=== PATIENT | male | born 1965 | race Caucasian/White ===

== ENCOUNTER 2020-02-01 02:09 | Inpatient (IN) | payer BC ==
[2020-02-01] VITALS (10 sets, daily range): BP systolic 142–192; BP diastolic 76–106; Ht 170.2 cm; Wt 149.7 kg
[~2020-02-01] VITALS: Ht 170.2 cm; Wt 149.7 kg
[2020-02-01 03:03] LABS: BASOPHILS 0 % (0-2); EOSINOPHILS 0 % (0-7); HEMATOCRIT 40.7 % (42.0-54.0); HEMOGLOBIN 13.7 g/dL (13.5-17.5); IMMATURE GRANULOCYTES 0.3 % (0-5); LYMPHOCYTES 11.4 % (15-50); MCH 29.7 pg (26.0-34.0); MCHC 33.7 g/dL (31.0-37.0); MCV 88.1 fL (80.0-100.0); MEAN PLATELET VOLUME 12.2 fL (7.4-10.4); MONOCYTES 6.5 % (2-11); NEUTROPHILS 81.8 % (40-80); PLATELET COUNT 134 10x3/uL (130-400); RBC 4.62 10x6/uL (4.20-6.10); RDW 12.9 % (11.5-14.5); WBC 5.9 10x3/uL (4.8-10.8)
[2020-02-01 03:06] LABS: CALC OSMOLALITY 281 mosm/kg (275-300); CALCIUM 7.7 mg/dL (8.5-10.1); CARBON DIOXIDE 26.7 mmol/L (21.0-32.0); CHLORIDE - SERUM 102 mmol/L (98-107); CREATININE - SERUM 1.3 mg/dL (0.6-1.3); GLUCOSE 222 mg/dL (74-106); POTASSIUM - SERUM 3.3 mmol/L (3.5-5.1); SODIUM 137 mmol/L (136-145); UREA NITROGEN 16 mg/dL (7-18); eGFR NON AFRICAN AMERICAN 61 mL/min (90-120)
[2020-02-01 03:17] LABS: BILIRUBIN NEGATIVE (NEGATIVE); KETONE NEGATIVE (NEGATIVE); NITRITE NEGATIVE (NEGATIVE); UROBILINOGEN NORMAL (NORMAL)
[2020-02-01 03:17] LABS: ALBUMIN 3.3 g/dL (3.4-5.0); ALKALINE PHOSPHATASE 60 U/L (30-120); ALT (SGPT) 38 U/L (10-68); BILIRUBIN - TOTAL 0.35 mg/dL (0.2-1.3); C-REACTIVE PROTEIN 10.1 mg/dL (0.0-0.9); PRO BNP 356 pg/mL (0-125); PROTEIN - SERUM 7.4 g/dL (6.4-8.2); TROPONIN-I < 0.017 ng/mL (0.000-0.060)
[2020-02-01 03:19] LABS: WHITE CELLS - URINE 0-5 /hpf (0-5)
[2020-02-01 03:20] LABS: BACTERIA FEW /hpf (NONE SEEN); EPITHELIAL CELLS 0-5 /hpf (0-5); RED CELLS - URINE 0-5 /hpf (0-5)
--- NOTE | 2020-02-01 06:55 | NUR ---
PATIENT TOT HE FLOOR VIA BED. ABLE TO TRANSFER BY SELF. A&O X4. NO DISTRESS NOTED. CALL LIGHT WITHIN REACH AND BED IN LOWEST LOCKED POSITION.
--- NOTE | 2020-02-01 07:22 | NUR ---
RECEIVE SHIFT REPORT. AMBULATING IN ROOM. ALERT AND ORIENTED X4. WILL CONTINUE PLAN OF CARE AND SAFETY PRECAUTIONS. CALL LIGHT IN REACH.
[2020-02-01] MEDS ORDERED: TENORMIN25 MG PO (07:54)
[2020-02-01] MEDS ORDERED: LOTENSIN40 MG PO (07:54)
[2020-02-01] MEDS ORDERED: ZYRTEC10 MG PO (07:55)
[2020-02-01] MEDS ORDERED: ASPIRIN81 MG PO (07:55)
[2020-02-01] MEDS ORDERED: FLOMAX0.4 MG PO (07:55)
--- NOTE | 2020-02-01 09:59 | NUR ---
CHARTED ADMITTING VITALS IN THE COMPUTER LATE AT 0919. CAMILO HEWITT DID VITALS AT 0739 AND BP WAS 146/78 SO NO APRESOLINE WAS GIVEN. WILL CONTINUE MONITORING.
--- NOTE | 2020-02-01 19:21 | NUR ---
PT ALERT AND ORIENTED AT THIS TIME NO NEEDS MADE KNOW SPOKE TO PT FROM DOOR
[2020-02-02 04:00] VITALS: BP 159/79
--- NOTE | 2020-02-02 05:09 | NUR ---
LATE ENTRY FOR 02/01/2020, STOP TIME AZITHROMYCIN @ 3779 ALL INFUSED.
[2020-02-02 08:29] VITALS: BP 136/90
[2020-02-02 09:08] LABS: BASOPHILS 0.1 % (0-2); EOSINOPHILS 1.1 % (0-7); HEMATOCRIT 37.8 % (42.0-54.0); HEMOGLOBIN 12.7 g/dL (13.5-17.5); IMMATURE GRANULOCYTES 1.3 % (0-5); LYMPHOCYTES 7.3 % (15-50); MCH 29.7 pg (26.0-34.0); MCHC 33.6 g/dL (31.0-37.0); MCV 88.3 fL (80.0-100.0); MEAN PLATELET VOLUME 11.8 fL (7.4-10.4); MONOCYTES 4.3 % (2-11); NEUTROPHILS 85.9 % (40-80); PLATELET COUNT 145 10x3/uL (130-400); RBC 4.28 10x6/uL (4.20-6.10); RDW 13.2 % (11.5-14.5); WBC 8.5 10x3/uL (4.8-10.8)
[2020-02-02 09:21] LABS: ALBUMIN 2.6 g/dL (3.4-5.0); ANION GAP 13.2 mmol/L (8-16); BILIRUBIN - TOTAL 0.33 mg/dL (0.2-1.3); CALCIUM 7.5 mg/dL (8.5-10.1); CARBON DIOXIDE 25.2 mmol/L (21.0-32.0); CREATININE - SERUM 1.3 mg/dL (0.6-1.3); POTASSIUM - SERUM 3.4 mmol/L (3.5-5.1); PROTEIN - SERUM 6.6 g/dL (6.4-8.2)
--- NOTE | 2020-02-02 11:42 | NUR ---
PT WITH TACHYPNEA AT 28 B/M. PLACED ON 2 LITERS PRIOR FOR PULSE OX 89% ON RA. NOW AT 93%. RT NOTIFIED AND ASSESSED PT. ABG CHECKED WITH PH 7.47, CO2 28.2, FIO2 91%. CALL PLACED TO FOR UPDATE.
[2020-02-02 11:55] VITALS: BP 141/69
[2020-02-02 15:39] VITALS: BP 177/80
--- NOTE | 2020-02-02 19:53 | NUR ---
RECIEVED UP IN BED WITH EYES OPEN AND TALKING ON TELEPHONE. ALERT AND ORIENTED UP AD LUZ TO B/R. O2@ 4 LITERS PER N/C. TELEMETRY IN PLACE. DENIES ANY NEEDS AT THIS TIME.
[2020-02-02 21:03] VITALS: BP 157/91
--- NOTE | 2020-02-03 05:53 | NUR ---
TEMP 102.5. ACETAMENOPHEN 650MG GIVEN.
--- NOTE | 2020-02-03 06:10 | NUR ---
RAPID RESPONSE, PO2 ON ABG 35.6, CALLED ED FOR EMERGENT INTUBATION. PT TO BE TRANSFERED TO ICU - JANE TILLMAN PAGED AND CALLED BACK, ORDERS FOR ICU PLACEMENT - PROPOFOL TITRATION ORDERS - AND TO RECHECK ABG 30 MIN POST ICU TRANSFER.
[2020-02-03 06:20] VITALS: BP 189/88
[2020-02-03 06:22] LABS: BASOPHILS 0.1 % (0-2); EOSINOPHILS 0 % (0-7); HEMATOCRIT 39.5 % (42.0-54.0); HEMOGLOBIN 13.3 g/dL (13.5-17.5); IMMATURE GRANULOCYTES 1.5 % (0-5); LYMPHOCYTES 9.3 % (15-50); MCH 29.7 pg (26.0-34.0); MCHC 33.7 g/dL (31.0-37.0); MCV 88.2 fL (80.0-100.0); MEAN PLATELET VOLUME 11.8 fL (7.4-10.4); MONOCYTES 4.1 % (2-11); RBC 4.48 10x6/uL (4.20-6.10); RDW 13.3 % (11.5-14.5)
[2020-02-03 06:23] LABS: PLATELET COUNT 177 10x3/uL (130-400); WBC 12.3 10x3/uL (4.8-10.8)
[2020-02-03 06:30] VITALS: BP 105/53
--- NOTE | 2020-02-03 06:33 | NUR ---
ATTEMPTED TO PAGE DR MCELROY VIA PAGER AND ANSWERING SERVICE , PRODUCTION PLANNER STATED HE HAD BEEN PAGED. ATTEMPTED TO CONTACT DR MCELROY ON HIS CELL PHONE NO ANSWER
[2020-02-03 06:36] LABS: APTT 26.1 SECONDS (22.8-39.4); INR 1.08 (0.85-1.17)
--- NOTE | 2020-02-03 06:39 | NUR ---
PT CALLED THIS NURSES STATION AND SAID HE COULD'NT BREATH. RT HAD ALREADY BEEN NOTIFIED THAT HE BROKE HIS CPAP MASK AND NEEDED HIM. WHEN GOING INTO ROOM RT ALREADY IN THERE. O2 SAT 39-45% ON 6 LITERS PER N/C. RAPID RESONSE CALLED AND PT INTUBATED AT BEDSIDE BY ER MD. TRANSFERED TO ICU. SPOKE WITH KOLE HIS SPOUSE AND EXPLAINED WHERE HE WAS AND WHAT HAPPENED.
[2020-02-03 06:44] LABS: CALC OSMOLALITY 285 mosm/kg (275-300); CALCIUM 7.6 mg/dL (8.5-10.1); CHLORIDE - SERUM 104 mmol/L (98-107); CREATININE - SERUM 1.2 mg/dL (0.6-1.3); GLUCOSE 172 mg/dL (74-106); POTASSIUM - SERUM 3.5 mmol/L (3.5-5.1); SODIUM 139 mmol/L (136-145); UREA NITROGEN 25 mg/dL (7-18); eGFR NON AFRICAN AMERICAN 67 mL/min (90-120)
[2020-02-03 06:45] LABS: CARBON DIOXIDE 18.3 mmol/L (21.0-32.0)
[2020-02-03 07:00] VITALS: BP 187/122
[2020-02-03 07:24] LABS: ALBUMIN 2.6 g/dL (3.4-5.0); ALKALINE PHOSPHATASE 47 U/L (30-120); ALT (SGPT) 43 U/L (10-68); BILIRUBIN - TOTAL 0.48 mg/dL (0.2-1.3); CKMB 1.2 U/L (0.0-3.6); MAGNESIUM - SERUM 1.7 mg/dL (1.8-2.4); PHOSPHOROUS 3.3 mg/dL (2.5-4.9); PROTEIN - SERUM 6.8 g/dL (6.4-8.2)
[2020-02-03 07:26] LABS: CREATINE KINASE 5511 UL (21-232); FERRITIN 2289 ng/mL (3-244); LDH 713 U/L (85-227); TROPONIN-I 0.071 ng/mL (0.000-0.060)
--- NOTE | 2020-02-03 07:53 | NUR ---
0610-PATIENT ARRIVED AT 0610 WITH ER STAFF AND MED 2 STAFF. TRANSFERED TO ICU BED, PLACED ON VENT. O2 SAT LOW. F/C PLACED. ATTEMPTED OGT TWICE BUT PATIENT WAS COUGHING AND WAKING UP.
[2020-02-03 08:00] VITALS: BP 154/88
[2020-02-03 09:00] VITALS: BP 134/58
--- NOTE | 2020-02-03 09:35 | NUR ---
0915: PT HEART RATE WITH BRADYCARDIA TO ASYSTOLE, NO PULSE. CODE BLUE INITIATED SEE CODE BLUE RECORDS. 0930: SPOKE WITH PTS AND DAUGHTER, UPDATES PROVIDED.
--- NOTE | 2020-02-03 09:47 | NUR ---
DR PRESCOTT ON PHONE WITH PTS .
== END 2020-02-03 10:20 | DRG 208 ==
LOC: D.ER 02:09 → D.ICU 03:34 → D.M2 03:34 → D.ICU 02-03 06:17
PROVIDERS: Family Medicine; Internal Medicine Pulmonary Disease; ADMIT Family Medicine; ATTEND Family Medicine
PROC: XW033E5 Introduction of Remdesivir Anti-infective into Peripheral Vein, Percutaneous Approach, New Technology Group 5 (ICD-10-PCS; principal; 2020-02-02)
PROC: 5A1935Z Respiratory Ventilation, Less than 24 Consecutive Hours (ICD-10-PCS; 2020-02-03)
PROC: 5A12012 Performance of Cardiac Output, Single, Manual (ICD-10-PCS; 2020-02-03)
PROC: 0BH17EZ Insertion of Endotracheal Airway into Trachea, Via Natural or Artificial Opening (ICD-10-PCS; 2020-02-03)
DX: U07.1 COVID-19 (principal); J12.89 Other viral pneumonia; R40.2214 Coma scale, best verbal response, none, 24 hours or more after hospital admission; Z68.43 Body mass index [BMI] 50.0-59.9, adult; E87.6 Hypokalemia; I25.10 Atherosclerotic heart disease of native coronary artery without angina pectoris; I10 Essential (primary) hypertension; E11.9 Type 2 diabetes mellitus without complications; N40.0 Benign prostatic hyperplasia without lower urinary tract symptoms; G47.33 Obstructive sleep apnea (adult) (pediatric); E66.01 Morbid (severe) obesity due to excess calories; R40.2354 Coma scale, best motor response, localizes pain, 24 hours or more after hospital admission; R40.2134 Coma scale, eyes open, to sound, 24 hours or more after hospital admission